=== PATIENT | female | born 1935 | race African-American/Black ===

== ENCOUNTER 2017-06-30 12:27 | Emergency (ER) | payer OTHER, MEDICAID ==
[~2017-06-30] VITALS: Ht 160 cm; Wt 59.0 kg
[2017-06-30] MEDS ORDERED: ACETAMINOPHEN 325MG TABLET PO STA (12:41)
[2017-06-30 13:08] LABS: BASOPHILS % 1.1 % (0.0-2.0); EOSINOPHILS % 0.2 % (0.0-5.0); HEMOGLOBIN. 12.3 g/dL (12.0-16.0); LYMPHOCYTES % 35.6 % (20.0-50.0); MEAN CORPUSCULAR HEMOGLOBIN 29.2 pg (28.0-32.0); MEAN CORPUSCULAR VOLUME 88.2 fL (81.0-99.0); MEAN PLATELET VOLUME 7.9 fl (7.4-10.4); MONOCYTES % 14.6 % (2.0-8.0); NEUTROPHILS % 48.5 % (40.0-76.0); PLATELET 230 x1000/uL (130-400)
[2017-06-30 13:28] LABS: CHLORIDE 105 mEq/L (98-107)
[2017-06-30 15:12] LABS: CLARITY URINE CLEAR (CLEAR); COLOR URINE YELLOW (YELLOW); KETONES URINE NEGATIVE (NEGATIVE); LEUKOCYTE ESTERASE URINE TRACE (NEGATIVE); NITRITE URINE NEGATIVE (NEGATIVE); OCCULT BLOOD URINE NEGATIVE (NEGATIVE); PROTEIN URINE NEGATIVE (NEGATIVE); SPECIFIC GRAVITY URINE 1.004 (1.005-1.030); UROBILINOGEN URINE 0.2 E.U./dL (0.2-1.0)
[2017-06-30 16:50] VITALS: BP 135/56
== END 2017-06-30 16:52 | disposition home or self-care (01) ==
LOC: ER 12:40
DX: R10.30 Lower abdominal pain, unspecified (principal); D72.819 Decreased white blood cell count, unspecified; J44.9 Chronic obstructive pulmonary disease, unspecified; I50.9 Heart failure, unspecified; Z88.5 Allergy status to narcotic agent
CPT/HCPCS: 36415; 80053; 81003; 82962; 83690; 85025; 99284

== ENCOUNTER 2017-09-27 12:49 | Emergency (ER) | payer OTHER, MEDICAID ==
[~2017-09-27] VITALS: Ht 165.1 cm; Wt 75.0 kg
[2017-09-27] MEDS ORDERED: MAGNESIUM/ALUMINUM HYDROXIDE/SIMETHICONE 30ML UDC PO STA (13:29)
[2017-09-27] MEDS ORDERED: VISCOUS LIDOCAINE 2% 15 ML UDC PO STA (13:29)
[2017-09-27] MEDS ORDERED: FAMOTIDINE 20MG/2ML VIAL IV ONE (13:30)
[2017-09-27 14:23] LABS: BASOPHILS % 0.5 % (0.0-2.0); EOSINOPHILS % 0.5 % (0.0-5.0); HEMATOCRIT. 40.2 % (36.0-48.0); HEMOGLOBIN. 13.4 g/dL (12.0-16.0); LYMPHOCYTES % 32.1 % (20.0-50.0); MEAN CORPUSCULAR HEMOGLOBIN 29.7 pg (28.0-32.0); MEAN CORPUSCULAR VOLUME 89.2 fL (81.0-99.0); MEAN PLATELET VOLUME 9.9 fl (7.4-10.4); MONOCYTES % 7.4 % (2.0-8.0); NEUTROPHILS % 59.5 % (40.0-76.0); PLATELET 218 x1000/uL (130-400); RED BLOOD CELL COUNT 4.51 mill/uL (4.2-5.4); RED CELL DISTRIBUTION WIDTH 14.1 % (11.6-14.6)
[2017-09-27 14:29] LABS: CHLORIDE 101 mEq/L (98-107)
[2017-09-27 15:10] VITALS: BP 143/75
== END 2017-09-27 15:42 | disposition home or self-care (01) ==
LOC: ER 12:49
DX: K29.70 Gastritis, unspecified, without bleeding (principal); I11.0 Hypertensive heart disease with heart failure; I50.9 Heart failure, unspecified; E78.00 Pure hypercholesterolemia, unspecified; J44.9 Chronic obstructive pulmonary disease, unspecified; Z88.5 Allergy status to narcotic agent
CPT/HCPCS: 36415; 80053; 83690; 84484; 85025; 96374; 99284; J3490

== ENCOUNTER 2020-02-27 08:32 | Emergency (ER) | payer MEDICARE, MEDICAID ==
[~2020-02-27] VITALS: Ht 167.6 cm; Wt 74.0 kg
[2020-02-27 08:39] VITALS: BP 166/84
[2020-02-27] MEDS ORDERED: GABAPENTIN 100MG CAPSULE PO ONE (09:15)
[2020-02-27 09:43] LABS: BASOPHILS % 0.4 % (0.0-2.0); EOSINOPHILS % 0.1 % (0.0-5.0); HEMATOCRIT. 39.8 % (36.0-48.0); HEMOGLOBIN. 12.9 g/dL (12.0-16.0); LYMPHOCYTES % 22.5 % (20.0-50.0); MEAN CORPUSCULAR HEMOGLOBIN 29.4 pg (28.0-32.0); MEAN CORPUSCULAR VOLUME 90.4 fL (81.0-99.0); MEAN PLATELET VOLUME 8.4 fl (7.4-10.4); MONOCYTES % 13.8 % (2.0-8.0); NEUTROPHILS % 63.2 % (40.0-76.0); PLATELET 258 x1000/uL (130-400)
[2020-02-27 09:47] LABS: CHLORIDE 108 mEq/L (98-107)
== END 2020-02-27 11:27 | disposition home or self-care (01) ==
LOC: ER 08:32
DX: G62.9 Polyneuropathy, unspecified (principal); F41.9 Anxiety disorder, unspecified; I11.0 Hypertensive heart disease with heart failure; I50.9 Heart failure, unspecified; Z88.5 Allergy status to narcotic agent; Z88.8 Allergy status to other drugs, medicaments and biological substances
CPT/HCPCS: 36415; 71045; 80053; 85025; 93005; 99285

== ENCOUNTER 2020-06-13 14:56 | Emergency (ER) | payer MEDICARE, MEDICAID ==
[~2020-06-13] VITALS: Ht 157.5 cm; Wt 65.0 kg
[2020-06-13 16:18] LABS: CLARITY URINE CLEAR (CLEAR); COLOR URINE YELLOW (YELLOW); KETONES URINE NEGATIVE (NEGATIVE); LEUKOCYTE ESTERASE URINE 2+ (NEGATIVE); NITRITE URINE NEGATIVE (NEGATIVE); OCCULT BLOOD URINE NEGATIVE (NEGATIVE); PROTEIN URINE 2+ (NEGATIVE); SPECIFIC GRAVITY URINE 1.021 (1.005-1.030); UROBILINOGEN URINE 0.2 E.U./dL (0.2-1.0)
[2020-06-13 16:22] LABS: BASOPHILS % 0.5 % (0.0-2.0); EOSINOPHILS % 0.3 % (0.0-5.0); HEMATOCRIT. 40.7 % (36.0-48.0); HEMOGLOBIN. 13.1 g/dL (12.0-16.0); LYMPHOCYTES % 17.5 % (20.0-50.0); MEAN CORPUSCULAR HEMOGLOBIN 29.4 pg (28.0-32.0); MEAN CORPUSCULAR VOLUME 91.8 fL (81.0-99.0); MEAN PLATELET VOLUME 8.1 fl (7.4-10.4); MONOCYTES % 12.5 % (2.0-8.0); NEUTROPHILS % 69.2 % (40.0-76.0); PLATELET 221 x1000/uL (130-400); RED BLOOD CELL COUNT 4.44 mill/uL (4.2-5.4)
[2020-06-13 16:27] LABS: CHLORIDE 106 mEq/L (98-107)
[2020-06-13 16:29] LABS: PROTHROMBIN TIME 10.2 sec (9.6-11.0)
[2020-06-13] MEDS ORDERED: CEPHALEXIN 250MG CAPSULE PO NR (17:15)
[2020-06-13] MEDS ORDERED: CEFTRIAXONE 1 G PREMIX 50 ML IV ONE (19:30)
[2020-06-13] MEDS ORDERED: MAGNESIUM/ALUMINUM HYDROXIDE/SIMETHICONE 30ML UDC PO ONE (19:45)
[2020-06-13] MEDS ORDERED: ACETAMINOPHEN 500MG TABLET PO ONE (19:45)
[2020-06-13] MEDS ORDERED: FAMOTIDINE 20MG TABLET PO ONE (19:45)
[2020-06-13 21:00] VITALS: BP 164/84
== END 2020-06-13 21:00 | disposition home or self-care (01) ==
LOC: ER 14:56 → CANBEDREQ 06-14 01:07
DX: K21.9 Gastro-esophageal reflux disease without esophagitis (principal); N39.0 Urinary tract infection, site not specified; K56.41 Fecal impaction; R74.8 Abnormal levels of other serum enzymes; N28.1 Cyst of kidney, acquired; I11.0 Hypertensive heart disease with heart failure; I50.9 Heart failure, unspecified; L92.8 Other granulomatous disorders of the skin and subcutaneous tissue; Z79.01 Long term (current) use of anticoagulants; Z96.641 Presence of right artificial hip joint; J98.11 Atelectasis
CPT/HCPCS: 36415; 71045; 74176; 80053; 81003; 83690; 84484; 85025; 85610; 86850; 86900; 86901; 93005; 96365; 99285; J0696

== ENCOUNTER 2021-07-10 02:24 | Emergency (ER) | payer MEDICARE, MEDICAID ==
[~2021-07-10] VITALS: Ht 160 cm; Wt 62.0 kg
[2021-07-10 04:04] LABS: HEMATOCRIT. 35.4 % (36.0-48.0); HEMOGLOBIN. 11.3 g/dL (12.0-16.0); MEAN CORPUSCULAR HEMOGLOBIN 27.8 pg (28.0-32.0); MEAN CORPUSCULAR VOLUME 87.1 fL (81.0-99.0); PLATELET 273 x1000/uL (130-400); RED BLOOD CELL COUNT 4.07 mill/uL (4.2-5.4)
[2021-07-10 04:14] LABS: CHLORIDE 107 mEq/L (98-107)
[2021-07-10 04:52] LABS: PLATELET ESTIMATE NORMAL
[2021-07-10] MEDS ORDERED: BENZ-16 MT (04:55)
[2021-07-10 07:57] VITALS: BP 155/67
== END 2021-07-10 08:00 | disposition home or self-care (01) ==
LOC: ER 02:24
DX: R05.8 Other specified cough (principal); T46.4X5A Adverse effect of angiotensin-converting-enzyme inhibitors, initial encounter; Y92.018 Other place in single-family (private) house as the place of occurrence of the external cause; I11.0 Hypertensive heart disease with heart failure; I50.9 Heart failure, unspecified; D64.9 Anemia, unspecified
CPT/HCPCS: 36415; 71045; 80053; 83880; 85025; 93005; 99285

== ENCOUNTER 2022-07-31 16:01 | Emergency (ER) | payer MEDICARE, MEDICAID ==
[~2022-07-31] VITALS: Ht 157.5 cm; Wt 63.3 kg
[~2022-07-31 16:01] MED LIST: BENZ-16 MT
[2022-07-31 16:25] VITALS: BP 190/85
== END 2022-07-31 21:21 | disposition left against medical advice (07) ==
LOC: ER 16:01
DX: Z53.21 Procedure and treatment not carried out due to patient leaving prior to being seen by health care provider (principal); I49.9 Cardiac arrhythmia, unspecified
CPT/HCPCS: 93005; 99281